=== PATIENT | female | born 1940 | race Two or more races ===

== ENCOUNTER 2024-08-02 08:18 | Emergency (ER) | payer MEDICARE, OTHER ==
[~2024-08-02] VITALS: Ht 147.3 cm; Wt 47.2 kg
[2024-08-02] MEDS: PANTOPRAZOLE 40 MG VIAL IV ONE (09:00)
[2024-08-02] MEDS: IV NS 0.9% 1,000 ML BAG IV ONE (09:00)
[2024-08-02] MEDS ORDERED: PANTOPRAZOLE 40 MG VIAL ONE (09:06)
[2024-08-02 09:16] LABS: BASOPHILS # (AUTO) 0.1 K/uL (0.0-0.2); BASOPHILS % (AUTO) 0.7 % (0.0-2.0); EOSINOPHILS # (AUTO) 0.1 K/uL (0.0-0.7); EOSINOPHILS % (AUTO) 0.7 % (0.0-6.0); HEMATOCRIT 32 % (33-45); HEMOGLOBIN 10.1 g/dL (11.5-14.8); LYMPHOCYTES # (AUTO) 2.6 K/uL (0.8-4.8); LYMPHOCYTES % (AUTO) 30.1 % (20.0-44.0); MEAN CORPUSCULAR HEMOGLOBIN 25 PG (26.0-33.0); MEAN CORPUSCULAR HGB CONC 32 g/dl (31.0-36.0); MEAN CORPUSCULAR VOLUME 77 fL (82-100); MONOCYTES # (AUTO) 0.7 K/uL (0.1-1.30); MONOCYTES % (AUTO) 8.6 % (2.0-12.0); NEUTROPHILS # (AUTO) 5.2 K/uL (1.8-8.9); NEUTROPHILS % (AUTO) 59.9 % (43.0-81.0); PLATELET COUNT (AUTO) 387 K/uL (150-450); RED CELL DISTRIBUTION WIDTH 15.1 % (11.5-15.0); WHITE BLOOD COUNT (AUTO) 8.7 K/uL (4.3-11.0)
[2024-08-02 09:30] LABS: PARTIAL THROMBOPLASTIN TIME 24.1 SEC (24.3-34.3); PROTHROMBIN TIME 10.6 SECS (9.2-11.1)
[2024-08-02] MEDS ORDERED: DOCU-141 PO (10:07)
[2024-08-02 10:35] LABS: CALCIUM, SERUM 8.6 mg/dL (8.5-10.1); CREATININE 0.8 mg/dL (0.6-1.3); POTASSIUM 4.2 mmol/L (3.5-5.1)
[2024-08-02 10:41] LABS: ALBUMIN 3.2 g/dL (3.4-5.0); BILIRUBIN,DIRECT 0.1 mg/dL (0.0-0.2); BILIRUBIN,TOTAL 0.4 mg/dL (0.2-1.0); TOTAL PROTEIN, SERUM 6.6 g/dL (6.4-8.2)
[2024-08-02 11:06] VITALS: BP 141/86; TEMP 98.3; O2SAT 100
== END 2024-08-02 11:07 | disposition home or self-care (01) ==
LOC: ER 08:29
DX: R10.84 Generalized abdominal pain (principal); K92.1 Melena; K59.09 Other constipation; Z85.828 Personal history of other malignant neoplasm of skin
CPT/HCPCS: 99285; 74176; 96374; 96361; 85025; 80048; 80076; 36415; 85730; 86850; J7030; J2470

== ENCOUNTER 2024-12-21 11:14 | Inpatient (IN) | payer MEDICARE, OTHER ==
[~2024-12-21] VITALS: Ht 147.3 cm; Wt 45.8 kg
[~2024-12-21 11:14] MED LIST: DOCU-141 PO
[2024-12-21] MEDS ORDERED: PANTOPRAZOLE 40 MG VIAL ONE (12:09)
[2024-12-21] MEDS: IV NS 0.9% 500 ML BAG IV ONE (12:17)
[2024-12-21] MEDS: PANTOPRAZOLE 40 MG VIAL IV ONE (12:17)
[2024-12-21 12:20] LABS: CALCIUM, SERUM 8.7 mg/dL (8.5-10.1); CREATININE 0.9 mg/dL (0.6-1.3); SODIUM SERUM 131 mmol/L (136-145); UREA NITROGEN, BLOOD 8 mg/dL (7-18)
[2024-12-21 12:26] LABS: ASPARTATE AMINOTRANSFERASE 16 U/L (15-37); TOTAL PROTEIN, SERUM 5.8 g/dL (6.4-8.2)
[2024-12-21 12:29] LABS: INR 1.03 (0.91-1.10)
[2024-12-21 12:30] LABS: PLATELET COUNT (AUTO) 408 K/uL (150-450); RED BLOOD CELL COUNT(AUTO) 3.24 MIL/uL (4.0-5.2); RED CELL DISTRIBUTION WIDTH 27.8 % (11.5-15.0); WHITE BLOOD COUNT (AUTO) 9.9 K/uL (4.3-11.0)
[2024-12-21] MEDS ORDERED: NEBI5TAB8 PO (13:24)
[2024-12-21] MEDS ORDERED: ERGO500093 PO (13:24)
[2024-12-21] MEDS ORDERED: DOCU100T2 PO (13:24)
[2024-12-21] MEDS ORDERED: SENN-261 PO (13:24)
[2024-12-21] MEDS ORDERED: FERR325T24 PO (13:24)
[2024-12-21] MEDS ORDERED: OMEP20CA15 PO (13:24)
[2024-12-21 15:00] VITALS: O2SAT 98
[2024-12-21] MEDS ORDERED: ZOLPIDEM TARTRATE 5 MG TABLET PO PRN (15:00)
[2024-12-21] MEDS ORDERED: ACETAMINOPHEN 325 MG TABLET PO PRN (15:00)
[2024-12-21] MEDS ORDERED: ONDANSETRON HCL/PF 4 MG/2 ML VIAL IVP PRN (15:00)
[2024-12-21] MEDS ORDERED: MAG HYDROX/AL HYDROX/SIMETH 30 ML UDC PO PRN (15:00)
[2024-12-21] MEDS ORDERED: MAGNESIUM HYDROXIDE 30 ML UDC PO PRN (15:00)
[2024-12-21] MEDS ORDERED: Z GUARD REMEDY 4 OZ OINT TP PRN (15:00)
[2024-12-21] MEDS: IV NS 0.9% 1,000 ML IV PRN (16:24)
[2024-12-21 20:00] VITALS: BP 155/82; TEMP 98.8; O2SAT 98
[2024-12-22 00:41] VITALS: BP 155/80; TEMP 98.4; O2SAT 95
[2024-12-22 04:24] VITALS: BP 143/68; TEMP 98.4; O2SAT 98
[2024-12-22] MEDS ORDERED: ERGOCALCIFEROL (VITAMIN D 2) 50,000 UNIT CAPSULE PO SCH (07:00)
[2024-12-22 07:26] LABS: PLATELET COUNT (AUTO) 386 K/uL (150-450); RED BLOOD CELL COUNT(AUTO) 3.17 MIL/uL (4.0-5.2); RED CELL DISTRIBUTION WIDTH 28.1 % (11.5-15.0); WHITE BLOOD COUNT (AUTO) 8.0 K/uL (4.3-11.0)
[2024-12-22 08:00] VITALS: BP 137/81; TEMP 98.1; O2SAT 98
[2024-12-22 08:06] LABS: CALCIUM, SERUM 8.6 mg/dL (8.5-10.1); CREATININE 0.8 mg/dL (0.6-1.3); PHOSPHORUS 3.6 mg/dL (2.5-4.9); SODIUM SERUM 145.0 mmol/L (136-145); UREA NITROGEN, BLOOD 5.0 mg/dL (7-18)
[2024-12-22 08:08] VITALS: BP 137/81
[2024-12-22] MEDS: FERROUS SULFATE (325 MG) 325 MG/TAB TABLET PO SCH (08:08)
[2024-12-22] MEDS: METOPROLOL TARTRATE 25 MG TABLET PO SCH (08:08)
[2024-12-22] MEDS: PANTOPRAZOLE 40 MG TABLET.DR PO SCH (08:08)
[2024-12-22] MEDS: SENNOSIDES 8.6 MG TABLET PO SCH (08:26)
[2024-12-22 11:52] LABS: OCCULT BLOOD STOOL NEGATIVE (NEGATIVE)
[2024-12-22] MEDS ORDERED: PANT40TA2 PO (12:12)
== END 2024-12-22 13:00 | disposition home or self-care (01) | DRG 394 ==
LOC: ER 11:20 → TELE 15:28 → MED 12-22 06:43
DX: K64.9 Unspecified hemorrhoids (principal); E44.1 Mild protein-calorie malnutrition; E87.1 Hypo-osmolality and hyponatremia; K57.30 Diverticulosis of large intestine without perforation or abscess without bleeding; K21.9 Gastro-esophageal reflux disease without esophagitis; E88.09 Other disorders of plasma-protein metabolism, not elsewhere classified; D64.9 Anemia, unspecified; Z68.21 Body mass index [BMI] 21.0-21.9, adult; K59.00 Constipation, unspecified; E86.1 Hypovolemia; I10 Essential (primary) hypertension
CPT/HCPCS: 36415; 71045-TC; 80048-TC; 80076-TC; 82272-TC; 83735-TC; 84100-TC; 85025-TC; 85730-TC; 86850-TC; A4223; G0378; J2470; J7030

== ENCOUNTER 2025-01-30 11:04 | Emergency (ER) | payer MEDICARE, OTHER ==
[~2025-01-30] VITALS: Ht 165.1 cm; Wt 45.8 kg
[~2025-01-30 11:04] MED LIST changes: -DOCU-141 PO; +DOCU100T2 PO; +ERGO500093 PO; +FERR325T24 PO; +NEBI5TAB8 PO; +PANT40TA2 PO; +SENN-261 PO
[2025-01-30 11:11] VITALS: TEMP 98
[2025-01-30 12:29] LABS: APPEARANCE,URINE CLEAR (CLEAR); BLOOD, URINE Moderate Ery/uL (NEGATIVE); LEUKOCYTE ESTERASE ,URINE Large (NEGATIVE); UGLUCOSE Negative (NEGATIVE)
[2025-01-30 12:37] LABS: NITRITE, URINE NEGATIVE (NEGATIVE)
[2025-01-30 12:41] LABS: ADD URINE CULTURE YES; SQUAMOUS EPITHELIAL CELL,UR 0-2 /HPF (None Seen)
[2025-01-30] MEDS ORDERED: CEPH-570 PO (13:20)
[2025-01-30 13:50] VITALS: BP 119/60; O2SAT 99
== END 2025-01-30 13:50 | disposition home or self-care (01) ==
LOC: ER 11:08
DX: N39.0 Urinary tract infection, site not specified (principal); K64.4 Residual hemorrhoidal skin tags; N81.10 Cystocele, unspecified; I10 Essential (primary) hypertension; Z79.899 Other long term (current) drug therapy; Z85.828 Personal history of other malignant neoplasm of skin; Z87.19 Personal history of other diseases of the digestive system; Z86.79 Personal history of other diseases of the circulatory system
CPT/HCPCS: 81001; 87086-TC; 87186-TC